=== PATIENT | male | born 1945 | race Caucasian/White ===

== ENCOUNTER → 2021-10-29 | Outpatient (CLI) | payer MEDICARE ==
[~2021-10-29] MED LIST: ADULT LOW DOSE81 MG PO; ALFUZOSIN HCL E10 MG PO; ATORVASTATIN CA40 MG PO; AUGMENTIN 875-1 EACH PO; BRILINTA90 MG PO; CALCIUM600 MG PO; COLCHICINE 0.60.6 MG PO; FLAGYL500 MG PO; GLUCOPHAGE 500500 MG PO; GLUCOTROL5 MG PO; METOPROLOL TART25 MG PO; NITROSTAT0.4 MG SL; NORCO 5-325 TA1 EACH PO; OMEPRAZOLE20 M1 PO; ONDANSETRON ODT4 MG PO; POTASSIUM CITR10 MEQ PO
[2021-10-29 10:10] LABS: HEMOGLOBIN 15.2 gm/dl (14.0-17.5); RED BLOOD COUNT 5.01 M/UL (4.20-5.50); WHITE BLOOD COUNT 4.4 K/UL (4.5-11.0)
[2021-10-29 10:37] LABS: BUN/CREATININE RATIO 19 (0-10)
== END ==
LOC: ECHO 09:15
PROVIDERS: Internal Medicine Cardiovascular Disease
DX: I25.10 Atherosclerotic heart disease of native coronary artery without angina pectoris (principal); I10 Essential (primary) hypertension; E11.9 Type 2 diabetes mellitus without complications; I25.2 Old myocardial infarction; I08.3 Combined rheumatic disorders of mitral, aortic and tricuspid valves
CPT/HCPCS: ECHO; 36415; 80053; 80061; 83036; 83735; 84443; 85025; 93306